=== PATIENT | female | born 1950 | race Caucasian/White ===

== ENCOUNTER 2022-05-13 14:00 | Outpatient (RCR) | payer MEDICARE, OTHER, SELFPAY ==
--- NOTE | 2021-03-16 14:48 | MHC.SLORD ---
Speech Language Pathology Order Status: This STOCK DRIER TENDER received an e-mail from Helga's , Celestine, which requested to cancel pt's scheduled teletherapy session this date. Pt has a scheduling conflict, as she has an appointment with her PCP this afternoon. This STOCK DRIER TENDER to notify Celestine of any cancellations this week during which Helga could be seen, otherwise, pt's next session is scheduled for 03/23 at 2pm.
--- NOTE | 2021-06-29 14:12 | MHC.SL.SOA ---
Referring Provider: Reason for Referral: Date of Plan of Treatment: Onset of Symptoms/Illness: Date Treatment Started: Medical Diagnosis:CVA Primary Speech Language Diagnosis:R47.01 Aphasia Secondary Speech Language Diagnosis: Number of Authorized Visits Remaining: Authorization End Date: Reason for Visit:Distance Visit using synchronous video Other: Subjective:Helga was seen for a teletherapy speech session using the HIPPA compliant program, [employer]. She was seen with her present as a precaution due to the COVID-19 pandemic. On 01/12/21 member has requested and verbally consented to their comprehensive evaluation, reevaluation, and/or visit being completed via telehealth due to COVID-19. On 01/12/21, therapist staff discussed the safety protocols that are used during any in-person visit, including but not limited to PPE use and COVID precautions but member still requested telehealth instead of an in-person visit. Susan was on time for the session. Susan was focused throughout putting forward a good effort. On word finding difficulty, Susan spontaneously started using circumlocution and association which were identified and reinforced. On re-presentation of a task that had been difficult last week, she recognized the difficult question with some level of annoyance, but then quickly recalled the word that had been very difficulty the previous week. Objective: Functional tasks were presented to assist with increasing Helga's receptive and expressive language. Expressive language tasks were presented to assist with increasing Helga's sentence length and reduce the number of paraphasias in her language. Assessment:Progress on goals are noted below, in the objective data reported below each goal: Notes: Continue with once weekly teletherapy speech sessions. Update goals to include a writing componenant Plan: Goal # 1: Increase naming ability to 80% accuracy given min cues as needed. Status of Goal: Goal Revised On a confrontation naming task, Susan demonstrated 80% accuracy, which was an improvement over the prior week. Goal # 2: Helga will utilize semantic feature analysis to describe a functional item with 80% accuracy given mod cues. Status of Goal: Goal Continued When given a list of details associated with an object/functional item, Susan demonstrated 70% accuracy on retrieval of the word.? When asked to describe similarity and differences of two items, she demonstrated 80% accuracy, with improvement over the previous week on this task.? This week only words were presented v. only pictures. Goal # 3: Brie will follow complex directions with 80% acc. given mod cues. Status of Goal: Goal Continued Susan was given two step directions w/embedding on a pencil and paper task.? She demonstrated 70% accuracy on this task today, missing some details in the directions Goal # 4: Helga will produce a synonym and antonym of an adjective provided with 80% accuracy given min cues. Status of Goal: Goal Continued Given a list of words and asked to provide a synonym and an antonym, Susan demonstrated 80% accuracy. At the end of the session, Susan did guided practice w/formulating language for a brief Thank You note, w/ maximum support and writing in response to her dictation.? She produced a 5 line card w/ salutation, thanks, impact, personal statement and signature. Seen by: Graduate/Clinical Fellow: No Supervisory Statement: f_Reg Query Last Value , MHC.AU.SIGNATUR Speech Language Pathologist: Bonnie Wright M.A., CCC-EXTRACTION MACHINE OPERATOR
== END 2022-05-17 15:15 | disposition home or self-care (01) ==
LOC: HO.SH 14:00
PROVIDERS: Visit Provider Internal Medicine
DX: I69.320 Aphasia following cerebral infarction (principal)
CPT/HCPCS: 92507

== ENCOUNTER 2023-06-24 09:00 | Outpatient (RCR) | payer MEDICARE, OTHER, SELFPAY | END 2023-07-29 11:17 | disposition home or self-care (01) | LOC: HO.PT 09:00 | PROVIDERS: PCP Internal Medicine; Visit Provider Physician Assistant | DX: M76.9 Unspecified enthesopathy, lower limb, excluding foot (principal); M51.36 Other intervertebral disc degeneration, lumbar region | CPT/HCPCS: 97110; 97162 ==

== ENCOUNTER 2025-03-01 10:31 | Outpatient (RCR) | payer MEDICARE, OTHER, SELFPAY ==
--- NOTE | 2025-03-07 09:17 | MHC.SP.ADU ---
Referring provider: [facility]; Rhett Khan MD Reason for Referral: Aphasia Type of Treatment: 85353 Assessment of Aphasia Date of Plan of Treatment: 03/01/25 Onset of Symptoms/Illness: 01/03/25 Date Treatment Started: 03/01/25 Medical Diagnosis: Aphasia R47.01 Primary Speech Language Diagnosis: R47.01 Aphasia Secondary Speech Language Diagnosis: History Helga ?Kristian? is a 75 year old female who was referred to [facility] from her PCP for a Speech-Language evaluation of aphasia. Kristian has quite a complicated medical history; significant hx of multiple strokes (2019 & 2024). Kristian is known to the clinic and received aphasia therapy for her initial stroke in 2019; therapy started in 2020 and ended in 2022. Per referring paperwork; Kristian?s most recent stroke occurred around 07/13/24; ?post-op left cerebellum stroke with left-sided hemiplegia and aphasia/dysphagia and hemorrhagic stroke in the right parietal and a small subarachnoid hemorrhage in the right frontal.? Kristian began her rehabilitation at [facility] (08/17/24-09/03/24). Kristian arrives today with the wish to continue her recovery with outpatient speech therapy. 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 Kristian is currently in multiple therapies (OT/PT) and is highly motivated to continue her rehabilitation. Kristian reports difficulties with reading , writing, creating conversational speech/maintaining topic, finding and ordering words. Medical History: Abdominal aortic aneurysm, Anemia, Anxiety, Aortic regurgitation, Cerebrovascular disease, CHF, Chronic hypoxic respiratory failure, CKD, COPD, Epilepsy, GERD, Hematuria, Heart Attack, HLD, Hyperparathyroidism, HTN, L hemiplegia, Pacemaker, PVD, Tobacco abuse Recent Hospitalizations: Yes: 06/2024- unknown admitting diagnosis Respiratory Needs: Room Air Patient Orientation: Alert & Oriented x 4 Social History: Employment Status: Retired Highest level of education obtained: Completed Master's Current Living Situation: Kristian currently lives in a private residence with her spouse, Celestine. Assistive Devices in use: Glasses/Contacts Past Speech Language Therapy: Previous speech therapy at this clinic after initial stroke in 2019 for similar complaints. Other Therapies Seen in Current Calendar Year: Occupational Therapy, Physical Therapy Swallowing History: Dysphagia Specific: Dysphagia Following CVA Comments: Has since resolved; patient has been without difficulties for >3 months Reported Speech, Language, Cognition difficulties: Understanding Reading Speaking Writing Comments: Kristian reports difficulties with reading , writing, creating conversational speech/maintaining topic, finding and ordering words. Quality of Life: Kristian reports a mild-moderate impact on life. She is strongly motivated and very interested in outpatient speech therapy. Patient Stated Goal of Speech-Language Therapy: Increase ability to speak (e.g. improve word-findings, increase length of utterances, etc.) Assessment Speech Production: Aphasic: Nonfluent Clinical Impression: Impaired Observations: See full aphasia assessment in Expressive/Receptive Language Assessments. Tests of Speech & Lang Adults: Western Aphasia Battery- Revised Clinical Impression: Impaired Observations: Western Aphasia Battery- Revised Record Form 1 SPONTANEOUS SPEECH: Conversational Questions For this task the subject must respond verbally to six personal questions (e.g., name, address, occupation, and reason for being in hospital or clinic). Kristian correctly answered 6/6 questions with short, one-word responses or small phrases; ?I was a personal injury litigation paralegal. Retired now.? Picture Description For this task the subject must describe a picture presented in the Stimulus book. Subjects are encouraged to answer in full sentences. Kristian was able to describe at least 10 people, objects or actions. Noted paraphasias made, Kristian aware of mistakes, able to correct one; ?Quirino reading on a lamppost, no dock.?. Kristian?s speech was often telegraphic, more fluent with grammatical organization. Task A and B for Spontaneous Speech are scored together in both Information Content and Fluency, Grammatical Competence, and Paraphasias. Kristian scored a 9 on the Information Content and a 5 on the Fluency, Grammatical Competence, and Paraphasias. The scores combine and create the overall score for Spontaneous Speech. Kristian had a total score of 14/20 for this section. AUDITORY VERBAL COMPREHENSION: Yes/No Questions For this task, the subject must answer Yes or No to several types of questions: personal (e.g. Is your name El?), environmental (e.g. Are the lights on in this room?), and general (e.g. Do you eat a banana before you peel it?). Kristian scored a 57/60, only missing Do you eat a banana before you peel it?. When given repetition of the question after completion and highlighting prepositions, Kristian was able to give the correct answer. Auditory Word Recognition For this task, the subject must identify something (e.g. common object, shape, letter, body part) from an array of items in the same category by pointing to it. Kristian scored a 57/60, noted more difficulties with letters and forms. Pointing to ?D? when instructed to point to ?B.? Unable to identify square: ?I don?t see a square.? When shown forms stimulus again and pointing out the square, Kristian reported ?that was not there, this is different.? Sequential Commands For this task, the subject must follow verbal commands of increasing length and complexity. Kristian scored a 43/80. Noted difficulties with sequential commands with use of objects (e.g. Point to the pen with the book). Kristian required repetitions of commands and placing objects on top of each other vs using objects to point to another object. Tasks A, B and C for Auditory Verbal Comprehension are scored together, these scores combine and create the overall score for this section. Kristian scored a 157/200. REPETITION For this task the subject must repeat words, phrases and sentences of increasing length and complexity. Kristian accurately repeated sentences of 5 words, she had difficulties with the last item which was the most complex. Able to repeat parts of the sentence, but unable to repeat the entirety of the sentence. Kristian scored a total of 94/100 for this section. NAMING AND WORD FINDING Object Naming For this task, the subject must name common objects from various categories. Kristian was able to accurately name 20/20 presented leading to a score of 53/60. Kristian required phonemic cueing for 2 items (safety pin and tape). Noted self corrections with utensils (spoon/fork) and lock. Word Fluency For this task, the subject must name as many animals as he or she can in one minute. Kristian was able to name 6 animals in the allotted time. Kristian was noted to not take any risk during this task. She was prompted to continue as she still had time left, but replied with ?no.? Kristian scored a total of 6/20. Sentence Completion For this task, the subject must complete five orally presented sentences. Kristian accurately completed 5/5 sentences leading to a score of 10/10. Responsive Speech For this task the subject must respond verbally to five simple questions. Kristian accurately answered 5/5 questions leading to a score of 10/10 Task A, B, C and D combine and form a total for the section of Naming and Word Finding. (person) scored a 79/100. The totals for all of these sections are then inputted into the score summary and each are divided by 10 to get the score needed for Aphasia Quotient (AQ); ?the Aphasia Quotient is the essential summary value of the individual?s aphasic deficit, and it is proportional to the severity of aphasia regardless of the type or etiology.? After calculation, Dorwinston?s scores indicated an AQ of 78.3, placing her into the mild range. The subject?s scores are then compared with the rows of scores associated with each aphasia type to determine the WAB-R Aphasia Classification. Doree?s scores indicated a classification of Anomic Aphasia . 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 Kristian showed strengths in Information Content in Spontaneous Speech, Yes/No Questions, Auditory Word Recognition, Repetition, Sentence Completion and Responsive Speech. Kristian demonstrated difficulties in Fluency, Grammatical Competence and Paraphasia in Spontaneous Speech, Sequential Commands, Object Naming and Word Fluency. Record Form 2: READING Comprehension of Sentence For this task, the subject reads sentences of increasing complexity silently or aloud and points to the missing word(s) needed to complete the sentence. This maximum score is 40 points, Kristian scored 40/40. Noted paraphasias when patient reading aloud. Doree also read the words out of order. Likely able to complete sentences with context clues vs understanding the entirety of a sentence. Reading Commands For this task, the subject reads instructions aloud (e.g. Raise your hand.) and does what is requested in the instructions. Each item is scored twice- once for reading accuracy and once for performance of the command. The maximum score for Reading Commands is 20. Kristian scored 14/20. Doree reading incorrect words impacting command to be carried out; Point to the chair and then to the door. Doree reading aloud; Point to the chair and then to the floor. Both scores are combined and this score is used to determine if further reading tasks should be carried out. Kristian scored a combined score of 54/60. Directions to discontinue reading tasks if the score is greater than or equal to 50. Reading tasks discontinued. Kristian?s Prorated Reading Total calculated and was 88. Kristian may benefit from additional reading tasks as semantic and syntactic errors noted when she was reading aloud vs spontaneous speech on picture description. Impressions and Recommendations Summary: Kristian is a 75 year old female? presenting with? mild anomic aphasia as residual effects of a CVA she had in June of this year. She is recommended outpatient speech therapy 1x wk for 10 weeks to train strategies for word retrieval and improve auditory & reading comprehension.. Recommendation for Speech Therapy: Outpatient Speech Therapy Frequency/Duration: 1x/week for 45 minutes Date Range for Service Requested: 10 weeks Time to Reassess: PRN Belt Worker Goals: LTG 1: Kristian will utilize a variety of word-finding strategies at conversational level with minimal assistance in >80% opportunities presented to her LTG 2: Kristian will be able to comprehend complex questions, commands, and conversational exchanges to meet daily needs w/ min assist from communication partner in >80% opportunities presented to her LTG 3: Kristian will complete Record Form 2 of Western Aphasia Battery-Revised to 100% completion Short Term Goals: Goal # : STG 1.1: Kristian will provide 4+ members per given category in 80% opportunities given moderate verbal and visual cues STG 1.2: Kristian will produce a minimum of 4 different features, when presented with a word using semantic feature analysis (SFA), given minimal verbal prompts with 80% accuracy Goal Status: New Goal Goal# : STG 1.3 Kristian will describe visual scenes using 2 or more sentences with 80% accuracy given moderate prompts Goal Status: New Goal Goal # : STG 2.1: Kristian will follow complex sequential commands with 80% accuracy given minimal cues STG 2.2: Kristian will answer questions based on 2-4 sentence length auditory information with 80% accuracy given moderate cues and repetitions Patient Education: Completed: Yes Patient/Caregiver Education: Described Results of Evaluation Patient expressed understanding of evaluation Family/Caregivers expressed understanding of results Family/Caregivers expressed agreement with goals and treatment plan Comments/Barriers to Learning: Salon Designer Clinican/Clinical Fellow: No Supervisory Statement: No Speech Language Pathologist: Fiona Jackson M.A., CCC-GROUND SUPPORT AGENT
== END 2025-04-16 15:04 | disposition still patient (30) ==
LOC: HO.SH 10:31
PROVIDERS: Visit Provider Internal Medicine
DX: R47.01 Aphasia (principal)

== ENCOUNTER 2025-03-07 10:57 | Outpatient (RCR) | payer MEDICARE, OTHER, SELFPAY | END 2025-03-26 08:45 | disposition home or self-care (01) | LOC: HO.PT 10:57 | PROVIDERS: PCP Internal Medicine; Visit Provider Internal Medicine | DX: Z86.73 Personal history of transient ischemic attack (TIA), and cerebral infarction without residual deficits (principal) | CPT/HCPCS: 97110; 97112; 97116; 97162; 97530 ==